=== PATIENT | female | born 1960 | race Caucasian/White ===

== ENCOUNTER 2020-09-08 09:38 | Outpatient (CLI) | payer BC, SELFPAY ==
--- NOTE | ~2020-09-08 | DEXA_ITS ---
Bone Density Report Name: Teressa Smyth Age: 60 Sex: Female Ethnicity: White Date of : 1960 Indication: osteopenia; height loss; postmenopausal Referring Provider: AIDEN FREEMAN Study: Bone densitometry was performed. Exam Date: September 08, 2020 Accession number: [id number] Bone Density: Region BMD T-score Z-score Classification AP Spine (L1-L4) 0.950 -0.9 0.5 Normal Femoral Neck (Left) 0.648 -1.8 -0.5 Osteopenia Total Hip (Left) 0.781 -1.3 -0.4 Osteopenia Total Hip Bilateral Avg 0.775 -1.4 -0.5 Osteopenia Femoral Neck (Right) 0.619 -2.1 -0.8 Osteopenia Total Hip (Right) 0.768 -1.4 -0.5 Osteopenia World Health Organization criteria for BMD impression classify patients as: Normal (T-score at or above -1.0), Osteopenia (T-score between -1.0 and -2.5), or Osteoporosis (T-score at or below -2.5). 10-year Fracture Risk(1): Major Osteoporotic Fracture 9.6% Hip Fracture 1.2% Reported Risk Factors: [place] (), Neck BMD=0.619, BMI=27.0 (1) FRAX(R) Version 3.08. Fracture probability calculated for an untreated patient. Fracture probability may be lower if the patient has received treatment. Previous Exams: Region Exam Age BMD T-score BMD Change BMD Change Date g/cm2 vs Baseline vs Previous AP Spine(L1-L4) 09/08/2020 60 0.950 -0.9 -0.032(-3.3%)# 0.002(0.2%) 06/19/2018 57 0.949 -0.9 -0.034(-3.4%)# -0.034(-3.4%)# 07/10/2013 53 0.982 -0.6 Total Hip(Left) 09/08/2020 60 0.781 -1.3 -0.047(-5.6%)# -0.037(-4.5%)* 06/19/2018 57 0.818 -1.0 -0.010(-1.2%)# -0.010(-1.2%)# 07/10/2013 53 0.828 -0.9 Total Hip(Right) 09/08/2020 60 0.768 -1.4 -0.058(-7.0%)# -0.036(-4.4%)* 06/19/2018 57 0.803 -1.1 -0.022(-2.7%)# -0.022(-2.7%)# 07/10/2013 53 0.826 -1.0 *Denotes significance at 95% confidence level, LSC for AP Spine = 0.022 g/cm2, LSC for Total Hip = 0.027 g/cm2 Clinical Information Provided by Patient: Has used the following medications: Vitamin D, Calcium Patient maximum height was 69 Menopause Age: 47 Does not regularly consume dairy products Drinks caffeinated beverages Onset of menses at age 16 Number of children 4 Impression: The patient has low bone mass, based on the Right Femoral Neck T-score. The patient has an estimated ten-year risk of hip fracture of 1.2% and an estimated ten-year risk of major fracture of 9.6%, based on the WHO FRAX algorithm. The BMD for the Total Hip(Left) decreased,
--- NOTE | ~2020-09-08 | MM_ITS ---
EXAMINATION: MM screening mammo BI HISTORY: Screening mammogram TECHNIQUE: Craniocaudal and mediolateral oblique 3-D tomosynthesis images were obtained and synthetic 2-D images were generated. CAD analysis was submitted and interpreted. COMPARISON: 07/29/2019 diagnostic digital mammogram and limited left breast ultrasound 07/06/2019, 06/19/2018 bilateral digital screening mammogram examinations BREAST PARENCHYMAL COMPOSITION: There are scattered areas of fibroglandular density. FINDINGS: Stable mild fibroglandular asymmetry. There is no evidence of suspicious mass, calcificatio n, or architectural distortion to suggest malignancy in either breast. There has been no suspicious i nterval change. IMPRESSION: 1. No mammographic evidence of malignancy. 2. Recommend routine screening mammography in one year. BI-RADS Category 2: Benign finding(s). Reviewed, dictated and finalized at location A. PUMPER
== END 2020-09-08 09:39 | disposition home or self-care (01) ==
LOC: ANHIMG 09:38
PROVIDERS: PCP Obstetrics & Gynecology; Visit Provider Obstetrics & Gynecology
DX: Z12.31 Encounter for screening mammogram for malignant neoplasm of breast (principal); Z78.0 Asymptomatic menopausal state; M85.852 Other specified disorders of bone density and structure, left thigh; M85.851 Other specified disorders of bone density and structure, right thigh
CPT/HCPCS: 77067; 77080

== ENCOUNTER 2021-09-10 08:49 | Outpatient (CLI) | payer BC, SELFPAY ==
--- NOTE | ~2021-09-10 | MM_ITS ---
EXAMINATION: MM screening arjun BI w mayur HISTORY: Screening mammogram TECHNIQUE: Craniocaudal and mediolateral oblique 3-D tomosynthesis images were obtained and synthetic 2-D images were generated. CAD analysis was submitted and interpreted. COMPARISON: 09/08/2020 bilateral screening mammogram BREAST PARENCHYMAL COMPOSITION: The breasts are heterogeneously dense, which may obscure small masses . FINDINGS: Stable mild fibroglandular asymmetry and minimal benign calcification. There is no evidence of suspicious mass, calcification, or architectural distortion to suggest malignancy in either breas t. There has been no suspicious interval change. IMPRESSION: 1. No mammographic evidence of malignancy. 2. Recommend routine screening mammography in one year. BI-RADS Category 2: Benign finding(s). Reviewed, dictated and finalized at location A. ING MACHINE OPERATOR AUTOMATIC
== END 2021-09-10 08:50 | disposition home or self-care (01) ==
LOC: ANHIMG 08:51
PROVIDERS: PCP Obstetrics & Gynecology; Visit Provider Obstetrics & Gynecology
DX: Z12.31 Encounter for screening mammogram for malignant neoplasm of breast (principal)
CPT/HCPCS: 77063; 77067

== ENCOUNTER 2021-12-16 00:24 | Day surgery (SDC) | payer BC, SELFPAY ==
[2021-12-04 14:51] VITALS: BMI 24.8
--- NOTE | 2021-12-15 21:41 | PM.HPGS ---
History of Present Illness History of Present Illness Consent: Risks, benefits, and alternatives have been discussed and questions answered. Patient agrees to proceed with procedure. Chief complaint: positive cologuard Narrative: Teressa Smyth is a 61 year old female referred for colon cancer screening. A recent cologuard test was positive. Review of Systems Review of Systems: All systems reviewed & are unremarkable except as noted in HPI and below PMFSH Past Medical History Medical History History of x4 Hypercalcemia Osteopenia Positive colorectal cancer screening using Cologuard test Surgical History Surgical History Tubal ligation status Family History Family History Mother Family history of elevated blood lipids Cerebrovascular accident Grandparent Family history of malignant neoplasm of stomach Family history of lung cancer Other Carcinoma of colon Social History Social History Smoking status: Never smoker Second hand tobacco smoke exposure: No Alcohol intake: current Drinks per week: 2 Living arrangements: alone Spiritual care concerns: No Meds Home Medications and Allergies Home Medications Medication Instructions Recorded Confirmed Type calcium carbonate 500 mg calcium 500 mg PO BID 07/28/20 12/16/21 History (1,250 mg) tablet multivitamin 1 tablet PO DAILY 07/28/20 12/16/21 History Allergies Allergy/AdvReac Type Severity Reaction Status Date / Time No Known Allergies Allergy Unknown Verified 12/16/21 07:44 Exam Const: General: alert Orientation/consciousness: patient oriented x3 Resp: Auscultation: clear to auscultation bilaterally Cardio: Rhythm: regular rhythm GI: GI Palp: Yes Soft to palpation and No Tenderness to palpation present (GI) Neuro: General: patient oriented x3 Assessment and Plan Assessment and plan (1) Positive colorectal cancer screening using Cologuard test: Code(s): R19.5 - Other fecal abnormalities Status: Acute Assessment and Plan: Colonoscopy with possible biopsy or polypectomy or cautery or injection of substances.
[2021-12-16 07:40] VITALS: BP 141/83; PULSE 91; RESP 18; TEMP 36.3; O2SAT 100
[2021-12-16] MEDS: LACTATED RINGERS 1,000 ML 150 ML IV CONT (07:53)
--- NOTE | 2021-12-16 08:04 | P.PNAN_ITS ---
Anes - Initial Pre Proc Eval Procedure: Operation Date: 12/16/21 09:00 Proposed Procedures p Colonoscopy - Nicolas Galindo MD Date/Time: 12/16/21 08:04 Surgeon: Nicolas Galindo MD Pre Op Diagnosis: positive cologuard Patient Data Age: 61 Gender: F Height: 1.7 m Weight: 24.8 kg Last Vital Signs Temp 36.3 C L 12/16/21 07:40 Pulse 91 12/16/21 07:40 Resp 18 12/16/21 07:40 BP 141/83 H 12/16/21 07:40 Pulse Ox 100 12/16/21 07:40 Allergies Allergy/AdvReac Type Severity Reaction Status Date / Time No Known Allergies Allergy Unknown Verified 12/16/21 07:44 Home Medications Medication Instructions Recorded Confirmed Type calcium carbonate 500 mg calcium 500 mg PO BID 07/28/20 12/16/21 History (1,250 mg) tablet multivitamin 1 tablet PO DAILY 07/28/20 12/16/21 History Patient hx anesthesia problems: none Family hx anesthesia problems: none Results Review: All pre-operative results and documents have been reviewed as part of the pre-operative evaluation. [facility] Past Medical History Medical History (Updated 12/16/21 @ 08:04 by Nazario Ovalle MD) History of x4 Hypercalcemia Osteopenia Positive colorectal cancer screening using Cologuard test Surgical History Surgical History Tubal ligation status Family History Family History Mother Family history of elevated blood lipids Cerebrovascular accident Grandparent Family history of malignant neoplasm of stomach Family history of lung cancer Other Carcinoma of colon Social History Social History Smoking status: Never smoker Second hand tobacco smoke exposure: No Alcohol intake: current Drinks per week: 2 Living arrangements: alone Spiritual care concerns: No Anes - Eval Final PreProcedure Day of Procedure 12/16/21 08:04 Patient weight: normal Heart: regular rate and rhythm Lungs: clear to auscultation and normal air movement Airway: Mallampati scale class II Neurological: alert and oriented Last oral intake: >/= 8 hours ASA classification: I Emergent: no Anesthetic plan: proceed Anesthesia type and monitoring: general GIVS Results Review: All pre-operative results and documents have been reviewed as part of the pre-operative evaluation. Informed Consent: The patient's anesthetic plan and its attendant risks and benefits were discussed with the patient/family/POA. Questions were solicited and answers provided to the satisfaction of the patient/family/POA.
[2021-12-16 09:12] VITALS: BP 111/67; PULSE 92; RESP 19; O2SAT 100
[2021-12-16 09:22] VITALS: BP 111/77; PULSE 78; RESP 18; O2SAT 100
[2021-12-16 09:32] VITALS: BP 117/84; PULSE 69; RESP 26; O2SAT 100
== END 2021-12-16 09:41 | disposition home or self-care (01) ==
PROVIDERS: PCP Family Medicine; Visit Provider Internal Medicine Gastroenterology
PROC: 0DJD8ZZ Inspection of Lower Intestinal Tract, Via Natural or Artificial Opening Endoscopic (ICD-10-PCS; CPT 45378; principal; 2021-12-16 09:00)
DX: Z12.11 Encounter for screening for malignant neoplasm of colon (principal); K64.8 Other hemorrhoids; K57.30 Diverticulosis of large intestine without perforation or abscess without bleeding; R19.5 Other fecal abnormalities; M85.80 Other specified disorders of bone density and structure, unspecified site
CPT/HCPCS: 45378; J2704; J7120

== ENCOUNTER 2022-11-02 16:22 | Outpatient (CLI) | payer BC, SELFPAY ==
--- NOTE | ~2022-11-02 | MM_ITS ---
EXAMINATION: MM screening arjun BI w mayur HISTORY: Screening mammogram TECHNIQUE: Craniocaudal and mediolateral oblique 3-D tomosynthesis images were obtained and synthetic 2-D images were generated. CAD analysis was submitted and interpreted. COMPARISON: 09/10/2021, 09/08/2020 bilateral screening mammogram examinations BREAST PARENCHYMAL COMPOSITION: There are scattered areas of fibroglandular density. FINDINGS: Stable mild fibroglandular asymmetry and occasional benign calcifications. There is no evid ence of suspicious mass, calcification, or architectural distortion to suggest malignancy in either b reast. There has been no suspicious interval change. IMPRESSION: 1. No mammographic evidence of malignancy. 2. Recommend routine screening mammography in one year. BI-RADS Category 2: Benign finding(s). Reviewed, dictated and finalized at location A. H ARNP
--- NOTE | ~2022-11-02 | DEXA_ITS ---
Bone Density Report Name: RUKHSANA CONTE Age: 62 Sex: Female Ethnicity: White Date of : 1960 Indication: postmenopausal; screening for osteoporosis; height loss; Referring Provider: AIDEN FREEMAN Study: Bone densitometry was performed. Exam Date: November 02, 2022 Accession number: [id number] Bone Density: Region BMD T-score Z-score Classification AP Spine(L1-L4) 0.923 -1.1 0.4 Osteopenia Femoral Neck (Left) 0.673 -1.6 -0.2 Osteopenia Total Hip (Left) 0.834 -0.9 0.2 Normal Femoral Neck (Right) 0.682 -1.5 -0.1 Osteopenia Total Hip (Right) 0.812 -1.1 0.0 Osteopenia Total Hip Mean 0.823 -1.0 0.1 Normal World Health Organization criteria for BMD impression classify patients as: Normal (T-score at or above -1.0), Osteopenia (T-score between -1.0 and -2.5), or Osteoporosis (T-score at or below -2.5). 10-year Fracture Risk(1): Major Osteoporotic Fracture 8.4% Hip Fracture 0.8% Reported Risk Factors: [place] (), Neck BMD=0.673, BMI=28.1 (1) FRAX(R) Version 3.08. Fracture probability calculated for an untreated patient. Fracture probability may be lower if the patient has received treatment. Clinical Information Provided by Patient: Has used the following medications: Vitamin D, Calcium Patient maximum height was 69 Menopause Age: 47 Does not regularly consume dairy products Drinks caffeinated beverages Onset of menses at age 16 Number of children 4 Impression: The patient has low bone mass, based on the Left Femoral Neck T-score. The patient has an estimated ten-year risk of hip fracture of 0.8% and an estimated ten-year risk of major fracture of 8.4%, based on the WHO FRAX algorithm. Discussion: BONE DENSITY IS LOW AT ONE OR MORE SKELETAL SITES. This patient's lowest T-score is low at one or more skeletal sites. It meets the World Health Organization's (WHO) criteria for ?low bone mass? (T-score between -1.0 and -2.5). The patient's 10-year risk of fracture as calculated by FRAX is less than the threshold where pharmacological therapy is recommended by the National Osteoporosis Foundation (NOF). However, all treatment decisions require clinical judgment and consideration of individual patient factors, including patient preferences, comorbidities, previous drug use, risk factors not captured in the FRAX model (e.g., frailty, falls, vitamin D deficiency, increased bone turnover, interval significant decline in bone density) and possible under or overestimation of fracture risk by FRAX. The patient should follow a healthful lifestyle (good nutrition with adequate calcium and vitamin D, and appropriate weight-bearing exercise). Follow-Up: Consider repeating this study in 2 to 3 years to reassess this patient's status, or sooner if there is some new clinical indicati
== END 2022-11-02 16:23 | disposition home or self-care (01) ==
PROVIDERS: PCP Family Medicine; Visit Provider Obstetrics & Gynecology
DX: Z12.31 Encounter for screening mammogram for malignant neoplasm of breast (principal); M85.89 Other specified disorders of bone density and structure, multiple sites
CPT/HCPCS: 77063; 77067; 77080

== ENCOUNTER 2024-02-06 07:18 | Outpatient (CLI) | payer BC, SELFPAY ==
--- NOTE | ~2024-02-06 | MM_ITS ---
EXAMINATION: MM screening arjun BI w mauyr HISTORY: Screening TECHNIQUE: Craniocaudal and mediolateral oblique 3-D tomosynthesis images were obtained and synthetic 2-D images were generated. CAD analysis was submitted and interpreted. COMPARISON: Comparison to multiple prior studies sequentially, with oldest reviewed study dated 06/19. BREAST PARENCHYMAL COMPOSITION: There are scattered areas of fibroglandular density. FINDINGS: There is no evidence of suspicious mass, calcification, or architectural distortion to sugg est malignancy in either breast. There has been no suspicious interval change. IMPRESSION: 1. No mammographic evidence of malignancy. 2. Recommend routine screening mammography in one year. BI-RADS Category 1: Negative Reviewed, dictated and finalized at location B.
== END 2024-02-06 07:19 | disposition home or self-care (01) ==
PROVIDERS: PCP Nurse Practitioner Adult Health; Visit Provider Obstetrics & Gynecology
DX: Z12.31 Encounter for screening mammogram for malignant neoplasm of breast (principal)
CPT/HCPCS: 77063; 77067

== ENCOUNTER 2025-02-13 09:56 | Outpatient (CLI) | payer BC, SELFPAY ==
[2025-02-13 19:54] LABS: Add Urine Microscopic? YES; Appearance Urine Clear (Clear); Bacteria Urine None Seen /hpf; Bilirubin Urine Negative (Negative); Blood Urine Negative (Negative); Color Urine Yellow (Yellow); Glucose Urine UA Negative (Negative); Ketones Urine Negative (Negative); Leukocyte Esterase Ur Trace LEU/UL (Negative); Nitrate Urine Negative (Negative); Non Pathogenic Casts 0-2; Protein Urine Negative (Negative); RBC Urine 0-2 /hpf (0-2); Specific Grav Ur 1.005 (1.001-1.035); Squamous Epithelial Cell Urine None Seen /hpf (Few); Urobilinogen Urine 0.2 mg/dL (<2.0); WBC Urine 0-5 /hpf (0-3)
== END 2025-02-13 09:57 | disposition home or self-care (01) ==
LOC: ANHBWCLAB 09:57
PROVIDERS: PCP Nurse Practitioner Adult Health; Visit Provider Nurse Practitioner Adult Health
DX: R39.9 Unspecified symptoms and signs involving the genitourinary system (principal)
CPT/HCPCS: 81001

== ENCOUNTER 2025-06-28 07:18 | Outpatient (CLI) | payer MEDICARE, BC, SELFPAY ==
--- NOTE | ~2025-06-28 | DEXA_ITS ---
Bone Density Report Name: RUKHSANA CONTE Age: 65 Sex: Female Ethnicity: White Date of : 1960 Indication: osteopenia; Referring Provider: AIDEN FREEMAN Study: Bone densitometry was performed. Exam Date: June 28, 2025 Accession number: [id number] Bone Density: Region BMD T-score Z-score Classification AP Spine(L1-L4) 0.912 -1.2 0.5 Osteopenia Femoral Neck (Left) 0.694 -1.4 0.1 Osteopenia Total Hip (Left) 0.820 -1.0 0.2 Normal Femoral Neck (Right) 0.635 -1.9 -0.4 Osteopenia Total Hip (Right) 0.769 -1.4 -0.2 Osteopenia Total Hip Mean 0.794 -1.2 0.0 Osteopenia World Health Organization criteria for BMD impression classify patients as: Normal (T-score at or above -1.0), Osteopenia (T-score between -1.0 and -2.5), or Osteoporosis (T-score at or below -2.5). 10-year Fracture Risk(1): Major Osteoporotic Fracture 10% Hip Fracture 1.5% Reported Risk Factors: [place] (), Neck BMD=0.635, BMI=26.5 (1) FRAX(R) Version 3.08. Fracture probability calculated for an untreated patient. Fracture probability may be lower if the patient has received treatment. Previous Exams: Region Exam Age BMD T-score BMD Change BMD Change Date g/cm2 vs Baseline vs Previous AP Spine (L1-L4) 06/28/2025 65 0.912 -1.2 -0.036 (-3.8%) -0.011 (-1.1%) 11/02/2022 62 0.923 -1.1 -0.026 (-2.7%) -0.027 (-2.9%) 09/08/2020 60 0.950 -0.9 0.002 (0.2%) 0.002 (0.2%) 06/19/2018 57 0.949 -0.9 Total Hip(Left) 06/28/2025 65 0.820 -1.0 0.002 (0.2%) -0.015 (-1.8%) 11/02/2022 62 0.834 -0.9 0.017 (2.0%) 0.053 (6.8%)* 09/08/2020 60 0.781 -1.3 -0.037 (-4.5%) -0.037 (-4.5%) 06/19/2018 57 0.818 -1.0 Total Hip(Right) 06/28/2025 65 0.769 -1.4 -0.034 (-4.2%) -0.043 (-5.3%) 11/02/2022 62 0.812 -1.1 0.009 (1.1%) 0.045 (5.8%)* 09/08/2020 60 0.768 -1.4 -0.036 (-4.4%) -0.036 (-4.4%) 06/19/2018 57 0.803 -1.1 *Denotes significance at 95% confidence level, LSC for AP Spine = 0.022 g/cm2, LSC for Total Hip = 0.027 g/cm2 Clinical Information Provided by Patient: Has used the following medications: Vitamin D, Calcium Patient maximum height was 68 Menopause Age: 47 Drinks caffeinated beverages Onset of menses at age 15 Number of children 4 Impression: The patient has low bone mass, based on the Right Femoral Neck T-score. The patient has an estimated ten-year risk of hip fracture of 1.5% and an estimated ten-year risk of major fracture of 10%, based on the WHO FRAX algorithm. The BMD for the Total Hip(Right) decreased, changing by -5.3% since the last DXA exam. Discussion: BONE DENSITY IS LOW AT ONE OR MORE SKELETAL SITES. This patient's lowest T-score is low at one or more skeletal sites. It meets the World Health Organization's (WHO) criteria for ?low bone mass? (T-score between -1.0 and -2.5). The patient's 10-year risk of fracture as calculated by FRAX is less than the threshold where pharmacological therapy is recommended by the National Osteoporosis Foundation (NOF). However, all treatment decisions require clinical judgment and consideration of individual patient factors, including patient preferences, comorbidities, previous drug use, risk factors not captured in the FRAX model (e.g., frailty, falls, vitamin D deficiency, increased bone turnover, interval significant decline in bone density) and possible under or overestimation of fracture risk by FRAX. The patient should follow a healthful lifestyle (good nutrition with adequate calcium and vitamin D, and appropriate weight-bearing exercise). Follow-Up: Consider repeating this study in 2 years to reassess this patient's status, or sooner if there is some new clinical indication. Reported by: RICARDO on 06/28/2025 8:08:00 AM. Reviewed, dictated and finalized at location A.
--- NOTE | ~2025-06-28 | MM_ITS ---
EXAMINATION: screening [facility] BI w mayur INDICATION: Asymptomatic, referred for screening mammogram COMPARISON: 02/06/2024 through 07/06/2019 TECHNIQUE: Digital Breast Tomosynthesis CC, MLO views of Both breasts were obtained with computer-aided detection to assist in interpretation of the study. FINDINGS: There are scattered areas of fibroglandular density. There is a new group of microcalcifications in the inferior central left breast at middle third, centered at 4.9 cm posterior to the nipple. A group of calcifications seen in the inferior lateral at middle depth in the left breast is unchanged dating back to the mammogram of 09/08/2020. Elsewhere, there are no mammographic features of malignancy. IMPRESSION: 1. Left breast Incompletely characterized group of calcifications. 2. No evidence of malignancy in the Right breast. RECOMMENDATION: Left breast Diagnostic mammogram with true lateral, and appropriate magnification views. BI-RADS Category 0: Incomplete: Needs additional imaging evaluation. Reviewed, dictated and finalized at location B. IMPRESSION: 1. Left breast Incompletely characterized group of calcifications. 2. No evidence of malignancy in the Right breast. RECOMMENDATION: Left breast Diagnostic mammogram with true lateral, and appropriate magnificati on views. BI-RADS Category 0: Incomplete: Needs additional imaging evaluation.
== END 2025-06-28 07:19 | disposition home or self-care (01) ==
LOC: ANHFOHIMG 07:19
PROVIDERS: PCP Family Medicine; Visit Provider Obstetrics & Gynecology
DX: Z12.31 Encounter for screening mammogram for malignant neoplasm of breast (principal); Z78.0 Asymptomatic menopausal state; R92.8 Other abnormal and inconclusive findings on diagnostic imaging of breast; M85.88 Other specified disorders of bone density and structure, other site; M85.852 Other specified disorders of bone density and structure, left thigh; M85.851 Other specified disorders of bone density and structure, right thigh
CPT/HCPCS: 77063; 77067; 77080

== ENCOUNTER 2025-08-12 10:52 | Outpatient (CLI) | payer MEDICARE, BC, SELFPAY ==
--- NOTE | ~2025-08-12 | MM_ITS ---
EXAMINATION: MM diagnostic arjun LT w mayur INDICATION: 65-year old female; BI-RADS 0, callback to evaluate calcifications in the left breast. COMPARISON: 06/28/2025 TECHNIQUE: Digital breast magnification CC and ML views of LEFT breast were obtained. FINDINGS: There are scattered areas of fibroglandular density. A group of amorphous microcalcifications that spans 1.1 cm seen in superior central LEFT breast correlates to the area of concern. IMPRESSION: Suspicious LEFT breast grouped amorphous microcalcifications in the superior central location. Biopsy is recommended. RECOMMENDATION: Stereotactic biopsy of superior central LEFT breast calcifications. BI-RADS 4, SUSPICIOUS Reviewed, dictated and finalized at location B. RUMENT ROOM TECHNICIAN
== END 2025-08-12 10:53 | disposition home or self-care (01) ==
LOC: ANHFOHIMG 10:54
PROVIDERS: PCP Nurse Practitioner Adult Health; Visit Provider Obstetrics & Gynecology
DX: R92.1 Mammographic calcification found on diagnostic imaging of breast (principal); R92.8 Other abnormal and inconclusive findings on diagnostic imaging of breast
CPT/HCPCS: 77061; 77065; G0279

== ENCOUNTER 2025-08-16 08:12 | Outpatient (CLI) | payer MEDICARE, BC, SELFPAY ==
--- NOTE | ~2025-08-16 | MM_ITS ---
AutoText: MM stereotactic specimen LT, MM stereotactic bx LT CLINICAL HISTORY: 65-year-old female with suspicious grouped microcalcifications in the superior central left breast presents for stereotactic core needle biopsy procedure. PROCEDURE: Stereotactic breast biopsy. The patient was brought into the stereotactic suite. A time-out procedure was performed. Preliminary images of the left breast were obtained to localize the calcifications. The area was then prepped and draped in the usual sterile fashion. 1% lidocaine was administered to the superficial soft tissues and 1% lidocaine without epinephrine was administered to the deeper soft tissues for local anesthesia. A yeimy was made in the skin and the 9 gauge Brevera biopsy needle was inserted through the yeimy and localized to the calcifications with confirmation by mammography. Multiple biopsy specimens were obtained. Images of the biopsy specimens demonstrate numerous calcifications corresponding with the suspicious calcifications seen on the mammogram. A microclip was placed in the biopsy site at the end of the procedure. Pressure was held at the site of biopsy and entry site for the needle until hemostasis was achieved. The patient tolerated the procedure well with no immediate post procedure complications. The biopsy specimens were sent to pathology for evaluation. Mammograms of the left breast in the craniocaudal and true lateral projections demonstrate the microclip in the biopsy site. IMPRESSION: Technically successful stereotactic biopsy of left breast calcifications. The patient tolerated the procedure well with no immediate post procedure complications. Reviewed, dictated and finalized at location B. ALK ARCHITECT IMPRESSION: Technically successful stereotactic biopsy of left breast calcifica tions. The patient tolerated the procedure well with no immediate post procedur e complications.
--- NOTE | 2025-08-16 11:16 | S_PTH ---
PATIENT: Teressa Smyth LOC: [facility] U#:[id number] AGE/SX: 65/F ROOM: RE08/16/[address]: Cindy Callahan MD : 1960 BED: DIS: 08/16/2025 SPEC #: [id number] RECD: 08/16/25 12:54 STATUS: ALFREDO RESamia #: [id number] BERTO: 08/16/25 11:[address]: Cindy Callahan DEPT: [facility] Surgical RECD BY: Joana Mueller ENTERED: 08/16/25 12:57 SP TYPE: Surgical OTHR DR: Jazmyn Montano APRN Tissues: A - Breast Biopsy B - Breast Biopsy C - Breast Biopsy D - Breast Biopsy E - Breast Biopsy F - Breast Biopsy G - Breast Biopsy H - Breast Biopsy I - Breast Biopsy J - Breast Biopsy K - Breast Biopsy L - Breast Biopsy Procedures: Hematoxylin and Eosin Stain Gross and Microscopic Level 4
== END 2025-08-16 08:13 | disposition home or self-care (01) ==
PROVIDERS: PCP Nurse Practitioner Adult Health; Visit Provider Surgery
DX: R92.8 Other abnormal and inconclusive findings on diagnostic imaging of breast (principal); R92.0 Mammographic microcalcification found on diagnostic imaging of breast
CPT/HCPCS: 19081; 88305